=== PATIENT | female | born 1955 | race Caucasian/White ===

== ENCOUNTER 2025-04-16 07:43 | Day surgery (SDC) | payer BC ==
[~2025-04-16 07:43] MED LIST: Sodium Chloride 0.9% 10 ML Syringe FLUSH PRN; Sodium Chloride 0.9% 2.5 ML Syringe FLUSH PRN
[2025-04-16] MEDS ORDERED: Propofol 200 MG/20 ML SDV ONE (08:12)
[2025-04-16] MEDS: Lactated Ringers 1,000 ML IV SCH (08:27)
[2025-04-16] MEDS ORDERED: propofoL 500 MG/50 ML 0 ML ONE (08:54)
== END 2025-04-16 09:42 | disposition home or self-care (01) ==
LOC: MW.SDS 07:43
PROVIDERS: ATTEND Surgery
DX: Z12.11 Encounter for screening for malignant neoplasm of colon (principal); K57.30 Diverticulosis of large intestine without perforation or abscess without bleeding; R19.5 Other fecal abnormalities; I10 Essential (primary) hypertension; F32.A Depression, unspecified; E78.9 Disorder of lipoprotein metabolism, unspecified; E03.9 Hypothyroidism, unspecified; E66.9 Obesity, unspecified; Z87.891 Personal history of nicotine dependence; Z79.890 Hormone replacement therapy; Z79.899 Other long term (current) drug therapy
CPT/HCPCS: 00811; J1596; J2704; J7120